=== PATIENT | male | born 1995 | race Caucasian/White ===

== ENCOUNTER 2024-03-25 07:55 | Day surgery (SDC) | payer OTHER ==
[~2024-03-25] VITALS: Ht 182.9 cm; Wt 90.3 kg
[~2024-03-25 07:55] MED LIST: GLYCOPYRROLATE INJ 0.2 MG/ML 2 ML VIAL As Ordered ONE; HYDROMORPHONE HCL 0.5 MG/ 0.5 ML SYRINGE IV PRN; LIDOCAINE 2% 100MG/5ML SDV (FOR ANES.) As Ordered ONE; LR 1,000 ML IV SCH; MIDAZOLAM INJ 2MG/2ML VIAL As Ordered ONE; ONDANSETRON 4MG 2ML VIAL As Ordered ONE; ONDANSETRON 4MG 2ML VIAL IV PRN; ROCURONIUM BROMIDE 50MG/5ML VIAL As Ordered ONE; SUGAMMADEX SODIUM 500 MG/5 ML VIAL (BRIDION) As Ordered ONE; fentaNYL 100 MCG/2 ML INJECTION As Ordered ONE; fentaNYL 100 MCG/2 ML INJECTION IV PRN; oxyCODONE 5MG TAB PO PRN; propofoL 200 MG/20 ML VIAL As Ordered ONE
[2024-03-25] MEDS ORDERED: LR 1,000 ML IV SCH ×2 (08:00→08:35)
[2024-03-25] MEDS ORDERED: OXYMETAZOLINE 0.05% NASAL SPRAY (AFRIN) As Ordered ONE (09:16)
[2024-03-25] MEDS ORDERED: ACETAMINOPHEN 1000MG/100ML IV BAG As Ordered ONE (09:19)
[2024-03-25] MEDS: LIDOCAINE W/EPINEPHRINE 1% 20ML VIAL As Ordered ONE (09:56)
[2024-03-25] MEDS: METHYLENE BLUE 0.5% (5MG/ML) 10 ML AMP (PROVAYBLUE) As Ordered ONE (09:56)
[2024-03-25] MEDS ORDERED: fentaNYL 100 MCG/2 ML INJECTION IV PRN (10:20)
[2024-03-25] MEDS ORDERED: ONDANSETRON 4MG 2ML VIAL IV PRN (11:30)
[2024-03-25] MEDS: MORPHINE 2 MG/ML 1ML VIAL IV PRN ×2 (11:53→14:35)
[2024-03-25] MEDS: ONDANSETRON 4MG 2ML VIAL IV PRN (11:56)
[2024-03-25] MEDS: oxyCODONE 5MG TAB PO PRN (12:51)
[2024-03-25] MEDS: IBUPROFEN 600MG TAB PO PRN (14:27)
[2024-03-25 15:30] VITALS: BP 132/80; TEMP 98.3; O2SAT 98
== END 2024-03-25 17:15 | disposition home or self-care (01) ==
LOC: M SDC 07:55
PROVIDERS: ATTEND Otolaryngology
DX: J34.2 Deviated nasal septum (principal); J34.3 Hypertrophy of nasal turbinates
CPT/HCPCS: 30140; 30520; J0131; J1100; J1596; J2250; J2405; J3010; Q9968